=== PATIENT | female | born 1965 | race Caucasian/White ===

== ENCOUNTER 2016-11-29 21:25 | Emergency (ER) | payer OTHER ==
[~2016-11-29] VITALS: Ht 167.6 cm; Wt 72.5 kg
[~2016-11-29 21:25] MED LIST: ARTIOIN27 OPB; FLNIN NAE; GABA800T PO; LAMO200T38 PO; LIDO1OIN4 TOP; MELO15TA4 PO; OXYC7.5T65 PO; POLY335019 PO; POLYSOL OPB; SRQ25 PO; TYLOTC500 PO; Tizanidine PO; [UNRECOGNIZED DRUG - CODE] PO
[2016-11-29 21:31] VITALS: TEMP 36.6; Ht 167.6 cm; Wt 72.5 kg
--- NOTE | 2016-11-29 22:24 | DIAGNOSTIC IMAGING REPORT ---
CERVICAL SPINE CT CT DOSE: 237.45 mGy.cm HISTORY: posterior neck pain, prior fusion TECHNIQUE: Multiaxial CT images of the cervical spine were performed and reformatted in the sagittal and coronal plane without the use of contrast. A dose lowering technique was utilized adhering to the principles of ALARA. COMPARISON: Cervical spine CT 06/07/2014. FINDINGS: Straightening of the cervical spine. No fracture or subluxation. Anterior cervical discectomy and fusion at C5-C6. The hardware appears intact. The vertebral bodies are fused. There is also posterior decompression and fusion from C4 through C7 with pedicle screws and rods. The hardware is also intact. Moderate disc space narrowing at C6-C7 with endplate osteophytes, unchanged. Partial fusion of the C4-C5 disc space which has progressed. Prevertebral soft tissues and the C1-C2 interval are intact. Evaluation of the central canal is essentially nondiagnostic by CT technique. Moderate facet degenerative changes within the upper cervical spine, unchanged. No abnormal periprosthetic lucency. IMPRESSION: 1. No significant change compared to the prior study. Degenerative and postoperative changes as described above. 2. No acute fracture or subluxation. Electronically signed by: Preet Ford M.D. 11/29/2016 10:22 PM Dictated Date/Time: 11/29/2016 10:15 PM
[2016-11-29] MEDS ORDERED: GDN80 PO (22:35)
[2016-11-29] MEDS ORDERED: MELA1TAB22 PO (23:04)
[2016-11-29] MEDS ORDERED: [UNRECOGNIZED DRUG - CODE] TOP (23:04)
[2016-11-29] MEDS ORDERED: FLUT0.15 NAE (23:04)
[2016-11-29] MEDS ORDERED: VALECAP PO (23:04)
[2016-11-29 23:30] VITALS: BP 96/58; PULSE 75; O2SAT 98
--- NOTE | 2016-11-30 02:48 | EMERGENCY ROOM VISIT NOTE ---
History Report prepared by Ninfa: Stephanie Emerson Under the Supervision of: Dr. Ervin Chakraborty M.D. First contact with patient: 21:54 Chief Complaint: NECK PAIN Stated Complaint: NECK/BACK OF HEAD PAIN History of Present Illness The patient is a 51 year old female who presents to the Emergency Room with complaints of worsening neck pain for the past several hours. She reports she was stretching her neck this afternoon, not thinking about what she was doing, when she accidentally "snapped her head back". She rates her discomfort as a 9/ 10 in severity and describes it as feeling like "burning pain". Movement worsens her discomfort. She admits to a history of chronic neck pain and underwent cervical spinal fusion surgery on her neck in 2013 at [facility]. The patient denies LOC, headache, fevers, chills, diaphoresis, visual changes, chest pain, breathing difficulties, nausea, vomiting, abdominal pain, back pain , melena, hematochezia, urinary symptoms, numbness, weakness, lymphadenopathy, rash, or other complaints. Source of History: patient Onset: this afternoon Position: neck Symptom Intensity: 9/10 Quality: burning Timing: worsening Modifying Factors (Worsening): movement Review of Systems See HPI for pertinent positives and negatives. A total of ten systems were reviewed and were otherwise negative. Past Medical & Surgical Medical Problems: (1) Anxiety (2) Bipolar disorder (3) Occipital neuralgia (4) Personality disorder (5) PTSD Surgical Problems: (1) History of fusion of cervical spine (2) History of tonsillectomy Family History Cancer Heart disease Hypertension Social History Smoking Status: Never Smoker Alcohol Use: none Drug Use: none Marital Status: Housing Status: lives with family Occupation Status: employed Current/Historical Medications Scheduled Artificial Tear Ointment (Refresh P.m.), 1 APPLN OPB HS Fluticasone Propionate (Nasal) (Flonase Allergy Relief), 3 SPRAYS VISHNU QAM Gabapentin (Neurontin), 800 MG PO QID Lamotrigine (Lamictal), 200 MG PO BID Melatonin-Pyridoxine (Melatonin), 40 MG PO HS Meloxicam (Mobic), 15 MG PO DAILY Polyethylene Glycol 3350 (Miralax), 17 GM PO DAILY Valerian (Valeriana Officinali (Valerian Root Plus), 6,000 MG PO HS Ziprasidone (Ziprasidone HCl), 160 MG PO DAILY Scheduled PRN Acetaminophen (Tylenol), 1,000 MG PO TID PRN for Pain or Fever Lidocaine HCl (Lidocream), 1 APPLN TOP TID PRN for PRN Polyvinyl Alcohol-Povidone (Op (Refresh), 1 DROP OPB BID PRN for dry eyes Allergies Coded Allergies: Benztropine (Verified Allergy, Intermediate, HALLUCINATE, 11/07/14) Haloperidol (Verified Allergy, Unknown, TARDITIVE DYSKINESIA, 11/07/14) Amitriptyline (Verified Adverse Reaction, Intermediate, MANIC, 11/07/14) Baclofen (Verified Adverse Reaction, Unknown, MANIC, 11/07/14) Physical Exam Vital Signs Date Time Temp Pulse Resp B/P (MAP) Pulse Ox O2 Delivery O2 Flow Rate FiO2 11/29/16 23:30 75 18 96/58 98 11/29/16 21:31 36.6 80 18 129/81 97 Room Air Physical Exam GENERAL: Awake, alert, well-appearing, in no distress HENT: Normocephalic, atraumatic. Oropharynx unremarkable. EYES: Normal conjunctiva. Sclera non-icteric. NECK: Supple. No nuchal rigidity. FROM. No JVD. RESPIRATORY: Clear to auscultation. CARDIAC: Regular rate, normal rhythm. Extremities warm and well perfused. Pulses equal. ABDOMEN: Soft, non-distended. No tenderness to palpation. No rebound or guarding. No masses. RECTAL: Deferred. MUSCULOSKELETAL: Posterior tenderness in the cervical spine. Chest examination reveals no tenderness. The back is symmetrical on inspection without obvious abnormality. There is no CVA tenderness to palpation. No joint edema. LOWER EXTREMITIES: Calves are equal size bilaterally and non-tender. No edema. No discoloration. NEURO: Normal sensorium. No sensory or motor deficits noted. SKIN: No rash or jaundice noted. Medical Decision & Procedures ER Provider Diagnostic Interpretation: Radiology results as stated below per my review and radiologist interpretation: CERVICAL SPINE CT CT DOSE: 237.45 mGy.cm HISTORY: posterior neck pain, prior fusion TECHNIQUE: Multiaxial CT images of the cervical spine were performed and reformatted in the sagittal and coronal plane without the use of contrast. A dose lowering technique was utilized adhering to the principles of ALARA. COMPARISON: Cervical spine CT 06/07/2014. FINDINGS: Straightening of the cervical spine. No fracture or subluxation. Anterior cervical discectomy and fusion at C5-C6. The hardware appears intact. The vertebral bodies are fused. There is also posterior decompression and fusion from C4 through C7 with pedicle screws and rods. The hardware is also intact. Moderate disc space narrowing at C6-C7 with endplate osteophytes, unchanged. Partial fusion of the C4-C5 disc space which has progressed. Prevertebral soft tissues and the C1-C2 interval are intact. Evaluation of the central canal is essentially nondiagnostic by CT technique. Moderate facet degenerative changes within the upper cervical spine, unchanged. No abnormal periprosthetic lucency. IMPRESSION: 1. No significant change compared to the prior study. Degenerative and postoperative changes as described above. 2. No acute fracture or subluxation. Electronically signed by: Preet Ford M.D. 11/29/2016 10:22 PM ED Course 2159: The patient was evaluated in room C10. A complete history and physical exam was performed. 2205: I offered the patient medication for her discomfort but she declines and she has already taken her evening medications and they are providing relief. 2318: I reevaluated the patient. She is feeling well and resting comfortably. I discussed her results and discharge instructions and she verbalized complete understanding and agreement. Medical Decision Triage Nursing notes reviewed. The patient's presentation and history were concerning for neck pain. Etiologies such as cervical strain, fracture, hardware failure as well as others were entertained. The patient was evaluated. She was doing well. She has had significant surgery on her neck before. She was concerned that she had felt the pain when she was looking back. She was concerned that her hardware may be damaged. A CT was performed. The hardware was intact. She has significant postoperative changes but there were no acute findings. On reassessment the patient was doing well. She was reassured by the negative imaging and felt comfortable with poison outpatient follow-up. I gave my usual and customary discussion regarding this issue. By the evaluation outlined above other emergent etiologies such as those listed in the differential, as well as others, were deemed relatively unlikely. The patient was educated about the findings as listed above. All questions were answered and the patient was pleased with the treatment. Return instructions were outlined and the patient was discharged in stable condition. The patient was referred to her PCP and surgeon for follow-up for a recheck of the current condition. Medication Reconcilliation Current Medication List: was personally reviewed by me Blood Pressure Screening Patient's blood pressure: Normal blood pressure Blood pressure disposition: Did not require urgent referral Impression Primary Impression: Cervical strain Scribe Attestation The scribe's documentation has been prepared under my direction and personally reviewed by me in its entirety. I confirm that the note above accurately reflects all work, treatment, procedures, and medical decision making performed by me. Departure Information Dispostion Home / Self-Care Referrals Racquel Chapa D.O. (PCP) Patient Instructions My [facility] Additional Instructions Warm compresses for 20 minutes at a time four times daily for 2-3 days. Return to the ER for worsening neck pain, headache, passing out, difficulty breathing, fevers, numbness, tingling, worsening of your condition, or as needed. Follow-up with your primary care physician in 2 to 3 days for a recheck of your current condition.
== END 2016-11-29 23:30 | disposition home or self-care (01) ==
LOC: C.EDB 21:29 → C.EDC 23:30
DX: S16.1XXA Strain of muscle, fascia and tendon at neck level, initial encounter (principal); X50.9XXA Other and unspecified overexertion or strenuous movements or postures, initial encounter; M54.2 Cervicalgia; G89.29 Other chronic pain; F41.9 Anxiety disorder, unspecified; F31.9 Bipolar disorder, unspecified; M54.81 Occipital neuralgia; F60.9 Personality disorder, unspecified; F43.10 Post-traumatic stress disorder, unspecified

== ENCOUNTER 2017-02-01 07:22 | Emergency (ER) | payer OTHER ==
[~2017-02-01] VITALS: Ht 167.6 cm; Wt 67.9 kg
[~2017-02-01 07:22] MED LIST changes: -FLNIN NAE; +FLUT0.15 NAE; +GDN80 PO; +LAMO200T35 PO; -LAMO200T38 PO; -LIDO1OIN4 TOP; +MELA1TAB22 PO; -OXYC7.5T65 PO; -SRQ25 PO; -Tizanidine PO; +VALECAP PO; -[UNRECOGNIZED DRUG - CODE] PO; +[UNRECOGNIZED DRUG - CODE] TOP
[2017-02-01 07:26] VITALS: Ht 167.6 cm; Wt 67.9 kg
[2017-02-01] MEDS ORDERED: CLON0.5T3 PO (07:49)
[2017-02-01] MEDS ORDERED: CARI1CAP2 PO (07:49)
[2017-02-01] MEDS ORDERED: GDN80 PO (07:49)
[2017-02-01] MEDS ORDERED: PROPARACAINE HCL 0.5% OP SOLN 15 ML BTL OP STA (07:50)
[2017-02-01] MEDS ORDERED: TRIMETHOPRIM/POLYMYXIN B OPL ONE (08:15)
--- NOTE | 2017-02-01 08:15 | EMERGENCY ROOM VISIT NOTE ---
ED Visit Note First contact with patient: 07:35 CHIEF COMPLAINT: Left eye pain and irritation HISTORY OF PRESENT ILLNESS: This 51-year-old female presents the ER with chief complaint of left eye pain and irritation. The patient states that she puts lidocaine gel on her head at night for occipital neuralgia. She states she woke up in the middle overnight and her left eye felt irritated and hurts when she moves her eye. She states she was sleepy and did not think too much of it but when this morning when she woke up her eye looked red and irritated and still was painful. She thinks she might have gotten some the lidocaine in her eye. She called poison control and they told her to come to the ER. REVIEW OF SYSTEMS:6 system review was performed and was negative unless stated otherwise in history of present illness. PMH: The patient is healthy; see chronic chronic problem list. SOCIAL HISTORY: Patient lives at home. PHYSICAL EXAM: Vital Signs: Were reviewed Reviewed Nurse's notes. GENERAL: This is a healthy-appearing person who is uncomfortable from the eye problem. MENTAL Status: Alert and oriented 3. EYES: The pupils are round, equal, and react to light. EOMs are full. There is discharge of clear tears from the left eye which is injected. There is no foreign body visible under athe eyelid even after lid eversion. Slit lamp exam No foreign body was seen embedded in the cornea. The cornea was clear and no hyphema was seen. Fluorescein uptake was observed with ultraviolet light at 6 to 8 o'clock position over the iris. EMERGENCY DEPARTMENT COURSE: The fluorescein was irrigated away and Polytrim eyedrop was placed into the left eye. The patient was given the remainder of the bottle to take with her. DIAGNOSIS: Left Corneal abrasion DISCHARGE INSTRUCTIONS AND TREATMENT: Polytrim eye drops into the left eye one drop every 3 hours while awake for 5-7 days. The eye should recover in about 24 to 36 hours. Return here or see an limehouse worker if it is not improving in 2 days. Tylenol or ibuprofen as needed for pain. Problem List Medical Problems: (1) Anxiety Status: Chronic (2) Bipolar disorder Status: Chronic (3) Personality disorder Status: Chronic (4) PTSD Status: Chronic Current/Historical Medications Scheduled Cariprazine HCl (Vraylar), 3 MG PO HS Clonazepam (Klonopin), 0.75 MG PO HS Fluticasone Propionate (Nasal) (Flonase Allergy Relief), 3 SPRAYS VISHNU QAM Gabapentin (Neurontin), 800 MG PO QID Lamotrigine (Lamictal), 200 MG PO BID Melatonin-Pyridoxine (Melatonin), 60 MG PO HS Meloxicam (Mobic), 15 MG PO DAILY Polyethylene Glycol 3350 (Miralax), 17 GM PO DAILY Valerian (Valeriana Officinali (Valerian Root Plus), 1,200 MG PO HS Ziprasidone (Ziprasidone HCl), 160 MG PO DAILY Scheduled PRN Acetaminophen (Tylenol), 1,000 MG PO TID PRN for Pain or Fever Lidocaine HCl (Lidocream), 1 APPLN TOP TID PRN for PRN Polyvinyl Alcohol-Povidone (Op (Refresh), 1 DROP OPB BID PRN for dry eyes Allergies Coded Allergies: Benztropine (Verified Allergy, Intermediate, HALLUCINATE, 02/01/17) Haloperidol (Verified Allergy, Unknown, TARDITIVE DYSKINESIA, 02/01/17) Amitriptyline (Verified Adverse Reaction, Intermediate, MANIC, 02/01/17) Baclofen (Verified Adverse Reaction, Unknown, MANIC, 02/01/17) Vital Signs Date Time Temp Pulse Resp B/P (MAP) Pulse Ox O2 Delivery O2 Flow Rate FiO2 02/01/17 07:26 36.9 84 18 108/73 97 Room Air Medications Administered Medications (Trade) Dose Ordered Sig/Allison Route Start Time Stop Time Status Last Admin Dose Admin Proparacaine HCl (Alcaine 0.5% Oph Soln) 2 drops NOW STAT OP 02/01/17 07:50 02/01/17 07:52 DC 02/01/17 08:08 2 DROPS Departure Information Referrals Racquel Chapa D.O. (PCP) Patient Instructions My [facility]
[2017-02-01 08:26] VITALS: BP 114/64; PULSE 84; TEMP 36.9; O2SAT 97
== END 2017-02-01 08:27 | disposition home or self-care (01) ==
LOC: C.EDB 07:23
DX: S05.02XA Injury of conjunctiva and corneal abrasion without foreign body, left eye, initial encounter (principal); X58.XXXA Exposure to other specified factors, initial encounter; F41.9 Anxiety disorder, unspecified; F31.9 Bipolar disorder, unspecified; Z79.899 Other long term (current) drug therapy